=== PATIENT | female | born 1975 | race Caucasian/White ===

== ENCOUNTER 2021-08-14 11:09 | Day surgery (SDC) | payer OTHER ==
[~2021-08-14] VITALS: Ht 152.4 cm; Wt 84.1 kg
[~2021-08-14 11:09] MED LIST: DEXAMETHASONE SOD PHOS 4 MG/ML VIAL ONE; FAMO-63 PO; HYDR-3164 PO; HYDR25TA PO; HYDROmorphone 2 MG/ML VIAL IVP PRN; IV RINGERS,LACTATED 1000ML 1,000 ML IV SCH; LIDOCAINE 2% PF 5 ML VIAL. ONE; MIDAZOLAM HCL/PF 2 MG/2 ML VIAL. ONE; MORPHINE SULFATE 2 MG/ML INJ. IVP PRN; ONDANSETRON PF 4 MG/2 ML VIAL. ONE; PRED50TA PO; PROCHLORPERAZINE 10 MG/2 ML VIAL. IVP PRN; PROPOFOL 10 MG/ML (20ML) VIAL. IV ONE; SULF1TAB24 PO; fentaNYL PF VIAL 100 MCG/2 ML VIAL IVP PRN; fentaNYL PF VIAL 100 MCG/2 ML VIAL ONE
[2021-08-14] MEDS ORDERED: HYDR-2761 PO (11:54)
--- NOTE | 2021-08-14 11:57 | SNU/HH DC ---
DISCHARGE ORDERS DISCHARGE INFORMATION: DISCHARGE DATE: Aug 14, 2021 FINAL DIAGNOSIS Status post left knee arthroscopy CONDITION ON DISCHARGE: Stable CODE STATUS: Code Status: Full POST DISCHARGE ORDERS: WEIGHT BEARING STATUS: Full weight bearing BATHING ORDERS: Shower-keep dressing dry DIET AFTER DISCHARGE: Regular WOUND/INCISION CARE: Ice to area for comfort FOLLOW-UP: PHYSICIAN FOLLOW-UP: 10-14 days TREATMENT/EQUIPMENT ORDERS: ADAPTIVE EQUIPMENT NEEDED: Crutches DISCHARGE MEDICATIONS: Home Meds Active Scripts Hydrocodone Bit/Acetaminophen (HYDROCODONE-APAP 5-325 ) 1 Tab Tablet, 1 TAB PO PRN Q6HRS PRN for PAIN MDD 6mdd for 10 Days, #30 TAB 0 Refills Prov:HAILY FAJARDO Jr. DO 08/14/21 Famotidine (PEPCID) 20 Mg Tablet, 20 MG PO BID, #14 TAB Prov:LYLE OLEARY 05/04/16 HAILY FAJARDO Jr. DO Aug 14, 2021 11:56
[2021-08-14 11:59] VITALS: BP 145/77
[2021-08-14] MEDS ORDERED: BUPIVACAINE-EPI 0.5%-1:200000 MPF 30 ML VIAL. ONE (12:41)
--- NOTE | 2021-08-14 12:46 | PDOC4 ---
OPERATIVE NOTE Date: Date: Aug 14, 2021 Pre-Op Diagnosis: medial meniscal tear left knee Post-Op Diagnosis: Same Procedure Performed: Left knee arthroscopy with partial medial meniscectomy and joint debridement Surgeon: Carolina Anesthesia Type: General Blood Loss: 20 cc Specimans Obtained: None Findings: See dictation Complications: None HAILY FAJARDO Jr. DO Aug 14, 2021 12:46
--- NOTE | 2021-08-14 13:04 | OP ---
DATE OF SURGERY: 08/14/2021 PREOPERATIVE DIAGNOSES: Degenerative joint disease, medial compartment with medial meniscal tear, left knee. POSTOPERATIVE DIAGNOSES: Degenerative joint disease, medial compartment with medial meniscal tear, left knee. PROCEDURE: Left knee arthroscopy with partial medial meniscectomy and joint debridement. SURGEON: Maldonado Figueroa Jr, DO STAVE JOINTER: Bijan Singh. ANESTHESIA: General. COMPLICATIONS: None. ESTIMATED BLOOD LOSS: 20 mL. Standard dictation for education administrative assistant. DESCRIPTION OF PROCEDURE: The patient was taken to the operative suite, given a general anesthetic. Left lower extremity was then prepped and draped in a sterile fashion. Standard inferomedial and inferolateral portals were then established. The knee was insufflated with saline. Visualization of the patellofemoral joint, noted there to be some fraying; however, no significant degenerative or severe degenerative changes in this or the femoral sulcus. Minimal debridement. Scope was then taken into the medial and lateral gutters. No loose body was noted. There was noted to be upon entering the medial compartment, a very large tear of the posterior horn of the medial meniscus as well as degenerative changes, grade 2 and grade 3 of the medial femoral condyle from 0 up to approximately 75 degrees of flexion. Therefore, following this, a partial medial meniscectomy was undertaken with basket forceps and a shaver and this was debrided back to a stable remnant. The root was intact and stable. After the partial medial meniscectomy was undertaken and the joint debridement was completed, there was no bone exposed; however, this was deep grade 3 in the femoral condyle, tibial side had grade 2. No further abnormalities were noted again with probing. Therefore, ACL and the PCL were visualized and noted to be intact and stable with probing. Lateral compartment was completely intact with just softening on the tibial side of the joint, otherwise unremarkable. This was then thoroughly irrigated and suctioned dry. All instruments were then removed and wounds were reapproximated. Local was placed. Sterile dressing was applied. The patient was then taken from the operative bed to the postoperative bed and taken to the PACU in stable condition. BRIGETTE DR: Maxine TID: [id number]
[2021-08-14] MEDS: fentaNYL PF VIAL 100 MCG/2 ML VIAL IVP PRN ×2 (13:15→13:44)
[2021-08-14] MEDS ORDERED: HYDROcodone/APAP 5/325MG 1 TAB TABLET PO ONE (14:00)
[2021-08-14 14:40] VITALS: BP 132/70
== END 2021-08-14 15:10 | disposition home or self-care (01) ==
LOC: SURG 11:09
PROVIDERS: ATTEND Orthopaedic Surgery
DX: S83.242A Other tear of medial meniscus, current injury, left knee, initial encounter (principal); M17.12 Unilateral primary osteoarthritis, left knee; K21.9 Gastro-esophageal reflux disease without esophagitis; F17.210 Nicotine dependence, cigarettes, uncomplicated; Z79.899 Other long term (current) drug therapy; Z98.890 Other specified postprocedural states; Z72.89 Other problems related to lifestyle; X58.XXXA Exposure to other specified factors, initial encounter; Y93.89 Activity, other specified; Y92.89 Other specified places as the place of occurrence of the external cause; Y99.8 Other external cause status
CPT/HCPCS: 29881; 81025; A4930; J0690; J1100; J2250; J2405; J2704; J3010